=== PATIENT | male | born 1985 | race Caucasian/White ===

== ENCOUNTER 2022-01-25 07:47 | Emergency (ER) | payer OTHER ==
[~2022-01-25 07:47] MED LIST: FLEXERIL 10 MG10 MG PO; IBUPROFEN600 MG PO; LISINOPRIL20 MG PO; NAPROSYN500 MG PO; PROTONIX 40 MG40 M1 PO
[2022-01-25 08:36] LABS: HEMOGLOBIN 17.2 gm/dl (14.0-17.5); RED BLOOD COUNT 5.8 M/UL (4.20-5.50); WHITE BLOOD COUNT 12.6 K/UL (4.5-11.0)
[2022-01-25 08:59] LABS: BUN/CREATININE RATIO 22 (0-10)
[2022-01-25] MEDS ORDERED: ZOFRAN 4 MG TAB4 MG PO (10:48)
[2022-01-25] MEDS ORDERED: AMOX TR-K CLV1 EAC4 PO (10:48)
[2022-01-25] MEDS ORDERED: BENTYL 20MG TAB20 MG PO (10:48)
== END 2022-01-25 10:55 | disposition home or self-care (01) ==
LOC: ER1 07:47
DX: K52.9 Noninfective gastroenteritis and colitis, unspecified (principal); E11.9 Type 2 diabetes mellitus without complications; F17.210 Nicotine dependence, cigarettes, uncomplicated; Z90.49 Acquired absence of other specified parts of digestive tract
CPT/HCPCS: 80053; 81001; 83690; 85025; 99284; Q9967